=== PATIENT | female | born 1970 | race Caucasian/White ===

== ENCOUNTER 2016-03-10 07:01 | Observation (INO) | payer OTHER ==
[~2016-03-10] VITALS: Ht 165.1 cm; Wt 79.6 kg
[~2016-03-10 07:01] MED LIST: DEXT15TA PO; OXYMETAZOLINE HCL 0.05% 15 ML NASAL SPRAY ONE
[2016-03-10 08:05] VITALS: BP 142/92; PULSE 60; RESP 16; TEMP 98.2; O2SAT 99
[2016-03-10] MEDS ORDERED: GLUC100017 PO (08:30)
[2016-03-10] MEDS ORDERED: VITATAB11 PO (08:30)
[2016-03-10] MEDS ORDERED: VITA10003 PO (08:30)
[2016-03-10] MEDS ORDERED: E 101000 PO (08:30)
[2016-03-10] MEDS ORDERED: SODIUM CHLORIDE 0.9% INJ 100 ML ONE (08:41)
[2016-03-10] MEDS ORDERED: AMPICILLIN-SULBACTAM INJ 3 GM VIAL ONE (08:42)
[2016-03-10] MEDS ORDERED: LACTATED RINGER'S 1000 ML INJ 1,000 ML ONE (08:42)
[2016-03-10] MEDS ORDERED: AMPICILLIN/SULBAC 3 GM/NS 100 ML IV SCH ×2 (09:15)
[2016-03-10] MEDS ORDERED: METOPROLOL TARTRATE 25 MG TAB PO PRN (09:30)
[2016-03-10] MEDS ORDERED: LACTATED RINGER'S 1000 ML IV SCH (09:30)
[2016-03-10] MEDS ORDERED: SODIUM CHLORID 0.9% 500 ML IV SCH (09:30)
[2016-03-10] MEDS ORDERED: INSULIN HUMAN REGULAR 1,000 UNITS/10 ML VIAL SQ PRN (09:30)
[2016-03-10] MEDS ORDERED: FAMOTIDINE 20 MG/2 ML VIAL ONE (09:45)
[2016-03-10] MEDS ORDERED: MIDAZOLAM HCL 2 MG/2 ML VIAL ONE (09:45)
[2016-03-10] MEDS ORDERED: BACITRACIN TOP OINT 15 GM TUBE ONE (10:20)
[2016-03-10] MEDS ORDERED: fentaNYL CITRATE 250 MCG/5 ML AMP ONE (10:35)
[2016-03-10] MEDS ORDERED: LIDOCAINE 1%/EPINEPHrine 1:200,000 PF SOLN 10 ML VIAL OTHER ONE (10:50)
[2016-03-10] MEDS ORDERED: OXYMETAZOLINE HCL 0.05% 15 ML NASAL SPRAY NASAL ONE ×4 (10:50→11:28)
[2016-03-10] MEDS ORDERED: MICROFIBRILLAR COLLAGEN HEMOSTAT 1 GM PKT ONE (11:30)
[2016-03-10] MEDS ORDERED: ONDANSETRON HCL 4 MG/2 ML VIAL IV PUSH ONE (12:00)
[2016-03-10] MEDS ORDERED: PROPOFOL 200 MG/20 ML AMP IV ONE (12:00)
[2016-03-10] MEDS: MORPHINE SULFATE 10 MG/ML INJ ONE (12:02)
[2016-03-10 13:30] VITALS: O2SAT 99
[2016-03-10] MEDS ORDERED: ONDANSETRON HCL 4 MG/2 ML VIAL IV PUSH PRN (13:30)
[2016-03-10] MEDS ORDERED: DO NOT ADM ANY ANTICOAGULANT DRUGS XX PRN (13:30)
[2016-03-10] MEDS: LACTATED RINGER'S 1000 ML INJ 1,000 ML IV SCH (15:58)
[2016-03-10] MEDS: AMPICILLIN/SULBAC 3 GM/NS 100 ML IV SCH ×2 (15:58)
[2016-03-10 16:00] VITALS: BP 132/72; PULSE 98; RESP 18; TEMP 97.6; O2SAT 94
[2016-03-10] MEDS: ACETAMINOPHEN 325MG/HYDROcodone 7.5MG/15ML UDC PO PRN (16:34)
[2016-03-10 20:00] VITALS: BP 149/82; PULSE 71; RESP 18; TEMP 97.1; O2SAT 100
[2016-03-11] VITALS: BP 121/65; PULSE 82; RESP 20; TEMP 97.8; O2SAT 100
[2016-03-11] MEDS: LACTATED RINGER'S 1000 ML INJ 1,000 ML IV SCH ×2 (00:27→08:41)
[2016-03-11] MEDS: AMPICILLIN/SULBAC 3 GM/NS 100 ML IV SCH ×4 (00:28→08:40)
[2016-03-11 08:00] VITALS: BP 140/82; PULSE 70; RESP 19; TEMP 97.2; O2SAT 100; O2SAT 99
[2016-03-11] MEDS: ACETAMINOPHEN 325MG/HYDROcodone 7.5MG/15ML UDC PO PRN (10:38)
--- NOTE | 2016-03-14 22:52 | MP ---
cc: DAYSI PHAM MD DATE OF SURGERY March 10, 2016 SURGEON Dayanara Pham MD PREOPERATIVE DIAGNOSIS 1. Nasal airway obstruction 2. Nasal septal deviation. 3. Hypertrophy of inferior turbinates 4. Adenotonsillar hypertrophy 5. Chronic tonsillitis 6. Obstructive sleep apnea. POSTOPERATIVE DIAGNOSIS 1. Nasal airway obstruction 2. Nasal septal deviation. 3. Hypertrophy of inferior turbinates 4. Adenotonsillar hypertrophy 5. Chronic tonsillitis 6. Obstructive sleep apnea. OPERATION PERFORMED 1. Open repair nasal septal fracture. 2. Bilateral submucosal resection of inferior turbinates 3. Adenotonsillectomy. INDICATIONS Documented in history and physical. DESCRIPTION OF OPERATION The patient was taken to OR #2 placed in the supine position. Following induction of general anesthesia and intubation, the nose was packed bilaterally with cotton pledgets saturated in 0.05% Oxymetazoline. Nasal septum and inferior turbinates were injected with a total of 12 mL of 1% Xylocaine with epinephrine 1:100,000. She was then prepped and draped for surgery. The packing was removed and a hemitransfixion incision was made in the left nasal vestibule and, through this incision. the mucosa of septum was elevated bilaterally as far as the junction in the bony cartilaginous septum. This exposed the anterior quadrangular cartilage which is very thick, twisted and irregular with evidence of old long healed septal fracture. A cumulative area of 2 x 2.5 cm was removed preserving 1.5 cm dorsal and caudal struts. This was completed in a piecemeal fashion using a [place] elevator and Pepe Olvera forceps. When this was completed, the mucosa was elevated in the bony septum and the maxillary crest and the bony septum was removed with Pepe Olvera forceps and the maxillary crest was removed using a 6-mm Fernando chisel and preserving the anterior nasal spine. The incision was then closed using a running suture of 4-0 chromic and the mucosal layers of the septum were approximated with a quilting stitch of 4-0 plain gut. The inferior turbinates were then fractured out medially and stab incisions were opened along their inferior surfaces. Through these incisions, the submucosal soft tissue was reduced using a curette and preserving the conchal bone. The incision was then cauterized using the suction Bovie at 35 lechuga and the remnants of the inferior turbinates were then re-lateralized to the lateral nasal wall. The nose was then packed with Merocel tampons coated in bacitracin ointment. The table was then turned 90 degrees and a shoulder roll and McIvor mouth gag were put in place. The tonsil was addressed first, grasped with the tonsil tenaculum and retracted medially and dissection was begun using the Coblator plasma wand technique. This quickly proved inadequate to control the bleeding of her chronically inflamed tonsils. The superior half of the tonsil fossa was then packed with a tonsil sponge pack saturated in Oxymetazoline and the left tonsillectomy was completed using standard monopolar Bovie cautery technique. When this was completed, the right tonsil was then further packed using additional tonsil sponge packs saturated in Oxymetazoline. These remained in place while the right tonsil was operated. This time completely using the monopolar Bovie technique. There was no bleeding on the right side except for a small spot of venous bleeding in the inferior pole. This area was also then packed with a tonsil sponge pack saturated in Oxymetazoline. Attention returned to the left side. The packing was removed and the bleeding was controlled using suction Bovie at 35 lechuga. The left tonsil fossa was then also packed completely with Avitene microfibrils. The right inferior tonsillar pole pack was then removed and bleeding in this side was controlled with a suction Bovie and a small area was also packed with Avitene microfibrils. When this was completed, using mirror guidance the adenoids were reduced using suction Bovie at 45 lechuga. The stomach was aspirated of several cc of cloudy gastric contents using a #18 [place] sump NG tube. When this was completed, the mouth gag was removed and the procedure was terminated. The patient was reversed from anesthesia and taken to recovery in good condition. There were no complications. Blood loss 200 mL. MD GREGG Wilson/ /12:30 PM /10:41 PM
== END 2016-03-11 12:04 | disposition home or self-care (01) ==
LOC: PHSDC 07:01 → PH3B 13:30
PROVIDERS: ADMIT Otolaryngology; ATTEND Otolaryngology
DX: J34.89 Other specified disorders of nose and nasal sinuses (principal); J34.2 Deviated nasal septum; J34.3 Hypertrophy of nasal turbinates; J35.01 Chronic tonsillitis; J35.3 Hypertrophy of tonsils with hypertrophy of adenoids; G47.33 Obstructive sleep apnea (adult) (pediatric)
CPT/HCPCS: 00160; 30140; 30520; 42821; 88304; 94762; G0378; J0295; J2250; J2270; J2405; J3010; J7120